=== PATIENT | female | born 1980 | race African-American/Black ===

== ENCOUNTER → 2016-10-30 | Outpatient (CLI) | payer OTHER ==
[~2016-10-30] MED LIST: ASPI81TA82 PO; FURO20TA PO; GABA300C3 PO; GLIP5 PO; KEPP1000 PO; KEPP500T3 PO; LISI-360 PO; METF500 PO; NEBI20 PO; TOPI50TA4 PO; [UNRECOGNIZED DRUG - CODE] PO
--- NOTE | 2016-10-30 10:31 | MG ---
cc: JERAD HARMON M.D. Lab No: Date: 10/30/2016 Age: 35 Sex: F Race: REQUESTING PHYSICIAN Dr. Yousif. An EEG was obtained on this 35-year-old patient being evaluated for syncope. History of seizures. MEDICATIONS 1. Keppra. 2. Gabapentin. 3. Hydrocodone. 4. Metformin. 5. Topamax. 6. Lisinopril. 7. Lasix. The patient is described as awake and drowsy. The EEG shows mid amplitude 9-10 per second alpha rhythm centrally and posteriorly. There are low amplitude beta rhythms centrally and frontally. There is occasional sharp discharge, questionably left more than right but most importantly there are bursts of spike and some polyspike and slow wave activity maximum frontally, this is seen bilaterally without any distinct asymmetry. Hyperventilation disclosed some minimal generalized slowing. Photic stimulation was unremarkable. INTERPRETATION Abnormal EEG because of occasional to frequent spike and some polyspike and slow wave discharge maximum frontally and bilaterally. 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 No ictal pattern during the recording. Jerad Harmon MD OFC/TLL /9:32 AM /10:30 AM
== END ==
LOC: HEEG 07:00
PROVIDERS: ATTEND Psychiatry & Neurology Neurology
DX: R55 Syncope and collapse (principal)
CPT/HCPCS: 95819

== ENCOUNTER 2017-06-04 22:22 | Emergency (ER) | payer OTHER, MEDICAID ==
[~2017-06-04] VITALS: Ht 188 cm; Wt 150.0 kg
[2017-06-04 22:23] VITALS: BP 130/90; PULSE 93; RESP 16; TEMP 99; O2SAT 99
[2017-06-04 23:38] VITALS: BP_SYST 107; BP_SYST 111; BP_SYST 125; BP_DIAS 65; BP_DIAS 68; BP_DIAS 83
--- NOTE | 2017-06-05 00:24 | PD ---
HPI Chief Complaint: Syncope/Near-Syncope Time Seen by Provider: 00:19 Travel History International Travel<30 days: No Contact w/Intl Traveler<30days: No Traveled to known affect area: No History of Present Illness HPI 36-year-old female presents to the emergency department for several days of dizziness and feeling lightheaded and perhaps as if she might faint. Patient's had no fainting spell or syncopal episodes. Patient denies previous history of similar symptoms. Patient states that she is . Patient was seen by her [employer] ATTENDANT 05/25/17 and neck appointment is 06/11/17. Patient is taking vitamins. Patient has history of seizure and was previously on Keppra but has not been on Keppra since diagnosed with and last seizure was approximately a year ago patient also has history of asthma but has had no recent exacerbation patient is also diagnosed with diabetes since on metformin but this has been held with her recent patient has had previous [place] bypass and that was performed 03/22/2016. Patient's had no fever no chills no cough no congestion no sore throat no earache no chest pain no palpitations no sweats no nausea no vomiting no dysuria frequency urgency hematuria or flank pain also denies any vaginal discharge vaginal bleeding or fluid leak. Patient has had good appetite reportedly. Patient does report weight gain. Patient reports discomfort as mild to moderate. Patient does not know her blood type. Last menstrual period was 03/06/17; EDC: 12/11/17. Patient is AB 0. PFSH Past Medical History Narrative Medical Asthma seizure diabetes dyslipidemia gastric bypass tonsillectomy adenoidectomy : No tobacco use; nursing notes reviewed Asthma: Yes Blood Disorders: No Bipolar Disorder: Yes Cancer: No Cardiovascular Problems: Yes High Cholesterol: Yes Diabetes: Yes Patient Takes Glucophage: Yes Diminished Hearing: No Endocrine: No Genitourinary: No Hepatitis: No Hiatal Hernia: No Hypertension: Yes Immune Disorder: No Implanted Vascular Access Dvce: No Musculoskeletal: Yes (HX OF BACK PROBLEMS) Neurologic: Yes (SEIZURES) Psychiatric: Yes (BIPOLAR, ADHD) Reproductive: No Respiratory: Yes (ASTHMA) Immunizations Current: No Seizures: Yes Thyroid Disease: No Influenza Vaccination: No ?: LMP: 03/06/17 Menopausal: No : 0 Past Surgical History Abdominal Surgery: Yes (gastric bypass 04/2016) AICD: No Joint Replacement: No Pacemaker: No Tonsillectomy: Yes Other Surgery: No Social History Alcohol Use: Yes (RARELY) Tobacco Use: No Substance Use: No Allergies-Medications (Allergen,Severity, Reaction): Coded Allergies: penicillin G (Unverified Allergy, Severe, 06/04/17) phenytoin (Unverified Allergy, Intermediate, hives, 06/04/17) diphenhydramine (Unverified Allergy, Mild, 06/04/17) Reported Meds & Prescriptions Reported Meds & Active Scripts Active Macrobid (Nitrofurantoin Monoh/Nitrofur Macro) 100 Mg Cap 100 Mg PO BID 3 Days Reported Gabapentin 300 Mg Cap 300 Mg PO ONCE Aspir-81 (Aspirin) 81 Mg Tab 81 Mg PO DAILY Keppra (Levetiracetam) 1,000 Mg Tab 1,000 Mg PO TID Glucophage 500 mg (Metformin HCl) 500 Mg Tab 500 Mg PO DAILY Keppra (Levetiracetam) 500 Mg Tab 500 Mg PO TID Glipizide 5 Mg Tab 5 Mg PO DAILY Bystolic 20 Mg Tab (Nebivolol) 20 Mg Tab 20 Mg PO DAILY Lisinopril 10 mg (Lisinopril) 10 Mg Tab 1 Tab PO DAILY Lortab 10 mg/300mg/15ml (Hydrocodone/Acetaminophen 10 mg/300 mg/15 ml) 10 mg/ 300 mg/15 ML Elix 15 Ml PO Q4 PRN Furosemide 20 Mg Tab 10 Mg PO DAILY Topamax (Topiramate) 50 Mg Tab 100 Mg PO BID PRN Narrative Medication vitamins Review of Systems Except as stated in HPI: all other systems reviewed are Neg Physical Exam Narrative GENERAL: Well-developed well-nourished female in no acute distress no respiratory distress SKIN: Warm and dry. HEAD: Normocephalic. EYES: No scleral icterus. No injection or drainage. NECK: Supple, trachea midline. No JVD or lymphadenopathy. CARDIOVASCULAR: Regular rate and rhythm without murmurs, gallops, or rubs. RESPIRATORY: Breath sounds equal bilaterally. No accessory muscle use. GASTROINTESTINAL: Abdomen soft, non-tender, nondistended. MUSCULOSKELETAL: No cyanosis, or edema. BACK: Nontender without obvious deformity. No CVA tenderness. Data Data Last Documented VS Vital Signs Date Time Temp Pulse Resp B/P (MAP) Pulse Ox O2 Delivery O2 Flow Rate FiO2 06/04/17 23:38 89 107/65 (79) 111 111/68 (82) 83 125/83 (97) 06/04/17 22:23 99.0 16 99 Room Air Orders Orders Beta Hcg (Quant/Titer) (06/05/17 00:19) Complete Blood Count With Diff (06/05/17 00:19) Comprehensive Metabolic Panel (06/05/17 00:19) Complete Rh (06/05/17 00:19) Urinalysis - C+S If Indicated (06/05/17 00:19) Iv Access Insert/Monitor (06/05/17 00:19) Ed Urine Pregnancytest Poc (06/05/17 00:19) Orthostatic Vital Signs (06/05/17 00:19) Electrocardiogram (06/05/17 ) Sodium Chlor 0.9% 1000 Ml Inj (Ns 1000 M (06/05/17 00:30) Labs Laboratory Tests Test 06/04/17 23:45 06/05/17 00:35 White Blood Count 8.6 TH/MM3 Red Blood Count 4.22 MIL/MM3 Hemoglobin 12.5 GM/DL Hematocrit 37.5 % Mean Corpuscular Volume 88.9 FL Mean Corpuscular Hemoglobin 29.7 PG Mean Corpuscular Hemoglobin Concent 33.4 % Red Cell Distribution Width 13.5 % Platelet Count 313 TH/MM3 Mean Platelet Volume 7.9 FL Neutrophils (%) (Auto) 52.6 % Lymphocytes (%) (Auto) 33.9 % Monocytes (%) (Auto) 8.8 % Eosinophils (%) (Auto) 3.9 % Basophils (%) (Auto) 0.8 % Neutrophils # (Auto) 4.5 TH/MM3 Lymphocytes # (Auto) 2.9 TH/MM3 Monocytes # (Auto) 0.8 TH/MM3 Eosinophils # (Auto) 0.3 TH/MM3 Basophils # (Auto) 0.1 TH/MM3 CBC Comment DIFF FINAL Differential Comment Blood Urea Nitrogen 8 MG/DL Creatinine 0.73 MG/DL Random Glucose 69 MG/DL Total Protein 7.2 GM/DL Albumin 2.9 GM/DL Calcium Level 8.3 MG/DL Alkaline Phosphatase 71 U/L Aspartate Amino Transf (AST/SGOT) 9 U/L Alanine Aminotransferase (ALT/SGPT) 11 U/L Total Bilirubin 0.3 MG/DL Sodium Level 138 MEQ/L Potassium Level 3.7 MEQ/L Chloride Level 105 MEQ/L Carbon Dioxide Level 22.5 MEQ/L Anion Gap 11 MEQ/L Estimat Glomerular Filtration Rate 110 ML/MIN Human Chorionic Gonadotropin, Quant 11054 MIU/ML Urine Color YELLOW Urine Turbidity HAZY Urine pH 5.5 Urine Specific [place] 1.019 Urine Protein TRACE mg/dL Urine Glucose (UA) NEG mg/dL Urine Ketones NEG mg/dL Urine Occult Blood NEG Urine Nitrite NEG Urine Bilirubin NEG Urine Urobilinogen 2.0 MG/DL Urine Leukocyte Esterase LARGE Urine RBC 3 /hpf Urine WBC 7 /hpf Urine Squamous Epithelial Cells 4 /hpf Urine Bacteria RARE /hpf Urine Mucus FEW /lpf Microscopic Urinalysis Comment CULT NOT INDICATED MDM Medical Decision Making Medical Screen Exam Complete: Yes Emergency Medical Condition: Yes Medical Record Reviewed: Yes Interpretation(s) poc hcg: positive quant hcg: CBC & BMP Diagram 06/04/17 23:45 Total Protein 7.2, Albumin 2.9 L, Calcium Level 8.3 L, Alkaline Phosphatase 71, Aspartate Amino Transf (AST/SGOT) 9 L, Alanine Aminotransferase (ALT/SGPT) 11, Total Bilirubin 0.3 Vital Signs Date Time Temp Pulse Resp B/P (MAP) Pulse Ox O2 Delivery O2 Flow Rate FiO2 06/04/17 23:38 89 107/65 (79) 111 111/68 (82) 83 125/83 (97) 06/04/17 22:23 99.0 93 16 130/90 (103) 99 Room Air Differential Diagnosis Near syncope syncope arrhythmia likely disturbance anemia dehydration UTI Narrative Course Patient placed on cardiac care nurse; IV access obtained; orthostatic measurements obtained; Patient given fluid bolus 1 L After informed verbal consent patient placed supine using curvilinear probe and sagittal and transverse views intrauterine identified with heart beat of 136 Patient informed of lab values given fluid hydration and oral intake Patient stable for outpatient management and follow-up with her field sales associate Diagnosis Primary Impression: Hypoglycemia Additional Impressions: Qualified Codes: Z3A.13 - 13 weeks gestation of Cystitis Referrals: [facility] [employer] Rep[employer]r 1 day Patient Instructions: General Instructions Additional Instructions: Increase fluid hydration Follow-up with your primary care provider/field sales associate Return to the emergency department for any concerns or change in condition Increase fluid hydration and dietary intake Complete course of antibiotic as prescribed Return to the emergency for free concerns or change condition Take acetaminophen/Tylenol as needed for minor pain or for fever 100.4 days Fahrenheit or greater Med/Other Pt SpecificInfo: Prescription(s) given Scripts Nitrofurantoin Monohydrate Macrocrystals (Macrobid) 100 Mg Cap 100 MG PO BID for Infection for 3 Days, #6 CAP 0 Refills Prov: Anabela Hays MD 06/05/17 Disposition: 01 DISCHARGE HOME Condition: Stable Anabela Hays MD Jun 05, 2017 00:24
[2017-06-05] MEDS ORDERED: SODIUM CHLOR 0.9% 1000 ML INJ 1,000 ML IV ONE (00:30)
[2017-06-05 00:55] LABS: AUTOMATED NEUTROPHIL # 4.5 TH/MM3 (1.8-7.7); BASOPHIL # 0.1 TH/MM3 (0-0.2); BASOPHIL % 0.8 % (0.0-2.0); EOSINOPHIL # 0.3 TH/MM3 (0-0.4); EOSINOPHIL % 3.9 % (0.0-4.0); HEMATOCRIT 37.5 % (35.0-46.0); HEMOGLOBIN 12.5 GM/DL (11.6-15.3); LYMPH % 33.9 % (9.0-44.0); LYMPHOCYTE # 2.9 TH/MM3 (1.0-4.8); MEAN CELL VOLUME 88.9 FL (80.0-100.0); MEAN CORPUSCULAR HEMOGLOBIN 29.7 PG (27.0-34.0); MEAN CORPUSCULAR HGB CONC 33.4 % (32.0-36.0); MEAN PLATELET VOLUME 7.9 FL (7.0-11.0); MONO % 8.8 % (0.0-8.0); MONOCYTE # 0.8 TH/MM3 (0-0.9); NEUT % 52.6 % (16.0-70.0); PLATELET COUNT 313 TH/MM3 (150-450); RED BLOOD COUNT 4.22 MIL/MM3 (4.00-5.30); RED CELL DISTRIBUTION WIDTH 13.5 % (11.6-17.2); WHITE BLOOD COUNT 8.6 TH/MM3 (4.0-11.0)
[2017-06-05 01:00] LABS: BACTERIA, URINE RARE /hpf; BILIRUBIN, URINE NEG (NEG); BLOOD, URINE NEG (NEG); GLUCOSE,URINE NEG (NEG); KETONE, URINE NEG (NEG); MUCUS URINE FEW /lpf (OCC); NITRITE,URINE NEG (NEG); PH, URINE 5.5 (5.0-8.5); SQUAMOUS EPITHELIAL CELL URINE 4 /hpf (0-5); URINE COLOR YELLOW (YELLW/STRAW); URINE LEUKOCYTE ESTERASE LARGE (NEG)
[2017-06-05 02:15] LABS: ALBUMIN 2.9 GM/DL (3.4-5.0); ALT (GPT) 11 U/L (10-53); AST (GOT) 9 U/L (15-37); BICARBONATE 22.5 MEQ/L (21.0-32.0); BLOOD UREA NITROGEN 8 MG/DL (7-18); CALCIUM 8.3 MG/DL (8.5-10.1); CHLORIDE 105 MEQ/L (98-107); CREATININE 0.73 MG/DL (0.50-1.00); GLOMERULAR FILTRATION RATE 110 ML/MIN (>89); GLUCOSE,RANDOM 69 MG/DL (74-106); SODIUM (NA) 138 MEQ/L (136-145)
[2017-06-05 02:33] LABS: ALKALINE PHOSPHATASE 71 U/L (45-117); TOTAL BILIRUBIN ADULT 0.3 MG/DL (0.2-1.0); TOTAL PROTEIN 7.2 GM/DL (6.4-8.2)
[2017-06-05] MEDS ORDERED: MACR100C2 PO (03:08)
== END 2017-06-05 03:50 | disposition home or self-care (01) ==
LOC: NEPC 22:22
DX: O24.111 Pre-existing type 2 diabetes mellitus, in pregnancy, first trimester (principal); E11.649 Type 2 diabetes mellitus with hypoglycemia without coma; O23.11 Infections of bladder in pregnancy, first trimester; O99.341 Other mental disorders complicating pregnancy, first trimester; O16.1 Unspecified maternal hypertension, first trimester; O99.511 Diseases of the respiratory system complicating pregnancy, first trimester; O99.841 Bariatric surgery status complicating pregnancy, first trimester; R56.9 Unspecified convulsions; Z3A.13 13 weeks gestation of pregnancy
CPT/HCPCS: 80053; 81001; 84702; 84703; 85025; 86901; 99284; J7030

== ENCOUNTER 2017-07-06 12:35 | Emergency (ER) | payer MEDICAID, OTHER ==
[~2017-07-06 12:35] MED LIST changes: +MACR100C2 PO
[2017-07-06] MEDS ORDERED: MEPERIDINE HCL 50 MG/ML VIAL IM ONE (14:30)
[2017-07-06] MEDS ORDERED: PROMETHAZINE INJ 25 MG/ML VIAL IM ONE (14:30)
--- NOTE | 2017-07-06 15:14 | PD ---
HPI Chief Complaint Headache for 6 day has not taken anything for Date Seen: Jul 06, 2017 Time Seen: 14:30 Travel History International Travel<30 Days: No Contact w/Intl Traveler<30Days: No Known Affected Area: No History of Present Illness HPI 36-year-old black female at 17-18 weeks who is unregistered to our system she sees a doctor in [place] she presents complaining of frontal headache for 6 days, she has had one episode of vomiting this morning. She has not taken anything for the headache so far but states that she has has a history of chronic headaches and was on Topamax for headaches but obviously is not taking that in she is having no obstetric problem no pelvic pain discharge bleeding or leakage of fluid. Weeks Gestation: 17 Para: 0 : 1 History Past Medical History Narrative Medical History of chronic headaches but did not take anything in , seizure disorder takes Keppra last seizure was last year some time, she has asthma and she takes medication for this as well, patient is obese and very tall 6 foot 2 and 325 pounds Obstetric History Obstetric History sees a doctor in [place] Past Surgical History Narrative Surgical Had a gastric bypass surgery in about a year and 3 months ago and she states prior to that she was heavier and had high blood pressure and was medicated for that once she had her surgery and lost weight she was no longer hypertensive Social History Alcohol Use: No Tobacco Use: No Substance Abuse: No Allergies-Medications (Allergen,Severity, Reaction): Coded Allergies: penicillin G (Unverified Allergy, Severe, 06/04/17) phenytoin (Unverified Allergy, Intermediate, hives, 06/04/17) diphenhydramine (Unverified Allergy, Mild, 06/04/17) Home Meds Active Scripts Nitrofurantoin Monohydrate Macrocrystals (Macrobid) 100 Mg Cap, 100 MG PO BID for Infection for 3 Days, #6 CAP 0 Refills Prov:Anabela Hays MD 06/05/17 Reported Medications Gabapentin (Gabapentin) 300 Mg Cap, 300 MG PO ONCE, CAP 01/12/16 Aspirin (Aspir-81) 81 Mg Tab, 81 MG PO DAILY, TAB 01/12/16 Levetiracetam (Keppra) 1,000 Mg Tab, 1000 MG PO TID, TAB 01/12/16 Metformin 500 mg (Glucophage 500 mg) 500 Mg Tab, 500 MG PO DAILY, TAB 01/12/16 Levetiracetam (Keppra) 500 Mg Tab, 500 MG PO TID, TAB 11/14/15 Glipizide (Glipizide) 5 Mg Tab, 5 MG PO DAILY, TAB 11/14/15 Nebivolol (Bystolic 20 Mg Tab) 20 Mg Tab, 20 MG PO DAILY, TAB 11/14/15 Lisinopril 10 mg (Lisinopril 10 mg) 10 Mg Tab, 1 TAB PO DAILY, TAB 11/14/15 Hydrocodone/Acetaminophen 10 mg/300 mg/15 ml (Lortab 10 mg/300mg/15ml) 10 mg/ 300 mg/15 ML Elix, 15 ML PO Q4 Y for PAIN SCALE 1 TO 6, ML 02/18/14 Furosemide (Furosemide) 20 Mg Tab, 10 MG PO DAILY, TAB 02/16/14 Topiramate (Topamax) 50 Mg Tab, 100 MG PO BID Y for HEADACHE, TAB 11/19/13 Review of Systems General / Constitutional: No: Fever, Weight Gain, Chills, Other Eyes: No: Diploplia, Blurred Vision, Visual changes, Pain, Photophobia HENT: Headaches, No: Vertigo, Lightheadedness Cardiovascular: No: Irregular Rhythm, Chest Pain or Discomfort, Palpitations, Tachycardia, Syncope, Varicosities, Edema, Cyanosis Respiratory: No: Cough, Short of Breath, Other Gastrointestinal: No: Nausea, Vomiting, Diarrhea Genitourinary: No: Decreased Urinary Output, Oliguria Musculoskeletal: No: Limited ROM, Weakness, Cramping, Edema, Pain Skin: No Rash, No Itching, No Dryness, No Lumps, No Change in Pigmentation, No Change in Nails, No Alopecia, No Lesions Neurologic: No: Weakness, Dizziness, Syncope, Focal Abnormalities, Coordination Problem, Headache, Slurred Speech, Seizures Psychiatric: No: Depression, Suicidal Ideations, Homicidal Ideation Endocrine: No: Heat Intolerance, Cold Intolerance, Polydipsia, Polyuria, Other Physical Exam Narrative GENERAL: Well-nourished, obese patient. SKIN: Warm and dry. HEAD: Normocephalic and atraumatic. EYES: No scleral icterus. No injection or drainage. ENT: No nasal drainage noted. Mucous membranes pink. Airway patent. NECK: Supple, trachea midline. No JVD. CARDIOVASCULAR: Regular rate and rhythm without murmurs, gallops, or rubs. RESPIRATORY: Breath sounds equal bilaterally. No accessory muscle use. BREASTS: Bilateral exam showed no masses , no retractions, no nipple discharge. ABDOMEN/GI: Abdomen soft, non-tender, bowel sounds present, no rebound, no guarding Gravid to [-17] weeks size Fundal Height: [17-] below umbilicus GENITOURINARY: External Genitalia: intact and normal in appearance FHT's: 144 EXTREMITIES: No cyanosis or edema. BACK: Nontender without obvious deformity. No CVA tenderness. NEUROLOGICAL: Awake and alert. Motor and sensory grossly within normal limits. Five out of 5 muscle strength in all muscle groups. Normal speech. Data Data Orders Orders Meperidine Inj (Demerol Inj) (07/06/17 14:30) Promethazine Inj (Phenergan Inj) (07/06/17 14:30) MDM Interpretation(s) Patient is a 36-year-old black female at 17-18 weeks presents with headache. She was initially seen down in the emergency room and I center up. OB ED. She has had a bad headache for 6 days is taken nothing for it, her blood pressure is normal here. She has a history of chronic headaches in the past was treated with Topamax prior to . Plan Plan to the patient I am shot of Demerol and Phenergan for her headache pain and will leave with a prescription for Fioricet for headaches she knows to take this early on as the headache begins not to wait and let it get bad Diagnosis Diagnosis: Primary Impression: Headache above the eye region Additional Impression: 17 weeks gestation of Disposition: DISCHARGE HOME Condition: Stable Scripts Xpghgycofq-Ufzewdwhcwoxa-Mkqfdjcs (Fioricet) 50-300-40 Mg Cap 1-2 CAP PO Q6H Y for HEADACHE, #20 CAP 1 Refill Prov: Baldev Rodriguez II, MD 07/06/17 Baldev Rodriguez II, MD Jul 06, 2017 15:14
[2017-07-06] MEDS ORDERED: BUTA1CAP PO (15:41)
== END 2017-07-06 15:51 | disposition home or self-care (01) ==
LOC: HOBED 12:35
DX: O26.92 Pregnancy related conditions, unspecified, second trimester (principal); R51 Headache; Z3A.17 17 weeks gestation of pregnancy; G89.29 Other chronic pain; J45.909 Unspecified asthma, uncomplicated; O99.842 Bariatric surgery status complicating pregnancy, second trimester; Z88.0 Allergy status to penicillin; Z88.8 Allergy status to other drugs, medicaments and biological substances
CPT/HCPCS: 96372; 99283; J2550

== ENCOUNTER 2017-10-26 15:48 | Observation (INO) | payer OTHER ==
[2017-10-26] VITALS (10 sets, daily range): BP systolic 106–132; BP diastolic 60–85; PULSE 83–97; RESP 16–20; TEMP 97.8–98.3; O2SAT 99–100
[~2017-10-26] VITALS: Ht 188 cm; Wt 148.0 kg
[~2017-10-26 15:48] MED LIST changes: +BUTA1CAP PO
[2017-10-26] MEDS ORDERED: LACTATED RINGER'S 1000 ML INJ 1,000 ML IV SCH (19:51)
--- NOTE | 2017-10-26 20:03 | PD ---
HPI Chief Complaint pt c/o feeling dizzy since sunday. Date Seen: Oct 26, 2017 Time Seen: 20:00 Travel History International Travel<30 Days: No Contact w/Intl Traveler<30Days: No Known Affected Area: No History of Present Illness HPI pt is a 36 yo who presents c/o feeling dizzy all day. pt hasn't eaten since 12 pm. symptoms are worse with standing, better intermittently with lying flat. c/o of pain in her head that comes and goes. pt also states there is numbness in her head denies photophobia or sensitivity to noise. admits to decreased po intake today. states care is with [facility] [place] secondary to hx of seizure d/o, gastric bypass and asthma. pt denies bowel or urinary symptoms. + FM, no LOF, VB or CTX. denies n/v. states she does not feel like this is an aura nor is it her chronic headaches for which she sees dr. carroll Weeks Gestation: 34 Para: 0 : 1 History Past Medical History Narrative Medical seizure d/o asthma diabetes chronic migraines ( took topamax before ) Obstetric History Obstetric History Past Surgical History Narrative Surgical gastric bypass Family History Family History: Negative Social History Alcohol Use: No Tobacco Use: No Substance Abuse: No Allergies-Medications (Allergen,Severity, Reaction): Coded Allergies: penicillin G (Unverified Allergy, Severe, 06/04/17) phenytoin (Unverified Allergy, Intermediate, hives, 06/04/17) diphenhydramine (Unverified Allergy, Mild, 06/04/17) Home Meds Active Scripts Hlkflkejvg-Qmeomomayddtw-Blhuuath (Fioricet) 50-300-40 Mg Cap, 1-2 CAP PO Q6H Y for HEADACHE, #20 CAP 1 Refill Prov:Baldev Rodriguez II, MD 07/06/17 Nitrofurantoin Monohydrate Macrocrystals (Macrobid) 100 Mg Cap, 100 MG PO BID for Infection for 3 Days, #6 CAP 0 Refills Prov:Anabela Hays MD 06/05/17 Reported Medications Gabapentin (Gabapentin) 300 Mg Cap, 300 MG PO ONCE, CAP 01/12/16 Aspirin (Aspir-81) 81 Mg Tab, 81 MG PO DAILY, TAB 01/12/16 Levetiracetam (Keppra) 1,000 Mg Tab, 1000 MG PO TID, TAB 01/12/16 Metformin 500 mg (Glucophage 500 mg) 500 Mg Tab, 500 MG PO DAILY, TAB 01/12/16 Levetiracetam (Keppra) 500 Mg Tab, 500 MG PO TID, TAB 11/14/15 Glipizide (Glipizide) 5 Mg Tab, 5 MG PO DAILY, TAB 11/14/15 Nebivolol (Bystolic 20 Mg Tab) 20 Mg Tab, 20 MG PO DAILY, TAB 11/14/15 Lisinopril 10 mg (Lisinopril 10 mg) 10 Mg Tab, 1 TAB PO DAILY, TAB 11/14/15 Hydrocodone/Acetaminophen 10 mg/300 mg/15 ml (Lortab 10 mg/300mg/15ml) 10 mg/ 300 mg/15 ML Elix, 15 ML PO Q4 Y for PAIN SCALE 1 TO 6, ML 02/18/14 Furosemide (Furosemide) 20 Mg Tab, 10 MG PO DAILY, TAB 02/16/14 Topiramate (Topamax) 50 Mg Tab, 100 MG PO BID Y for HEADACHE, TAB 11/19/13 Review of Systems Except as stated in HPI: all other systems reviewed are Neg Physical Exam Vital Signs Date Time Temp Pulse Resp B/P (MAP) Pulse Ox O2 Delivery O2 Flow Rate FiO2 10/26/17 16:13 98.3 97 16 128/79 (95) 99 Narrative GENERAL: Well-nourished, well-developed patient. SKIN: Warm and dry. HEAD: Normocephalic and atraumatic. EYES: No scleral icterus. No injection or drainage. ENT: No nasal drainage noted. Mucous membranes pink. Airway patent. NECK: Supple, trachea midline. No JVD. CARDIOVASCULAR: Regular rate and rhythm without murmurs, gallops, or rubs. RESPIRATORY: Breath sounds equal bilaterally. No accessory muscle use. BREASTS: Bilateral exam showed no masses , no retractions, no nipple discharge. ABDOMEN/GI: Abdomen soft, non-tender, bowel sounds present, no rebound, no guarding Gravid Fundal Height: [-] GENITOURINARY: Membranes: [intact] Uterine Contractions: [quiet] FHT's: Category: [-] 1 Baseline: [-] Reactive: [-] Variability: [-] Decels: [-] EXTREMITIES: No cyanosis or edema. BACK: Nontender without obvious deformity. No CVA tenderness. NEUROLOGICAL: Awake and alert. Motor and sensory grossly within normal limits. Five out of 5 muscle strength in all muscle groups. Normal speech. Data Data Vital Signs Reviewed: Yes Orders Orders Vital Signs (Adult) .ON ADMISSION (10/26/17 19:51) ^ Labor Status (10/26/17 19:51) Heart (10/26/17:51) Urinalysis - C+S If Indicated (10/26/17:51) Bedside Glucose LANDY.CSUGAR (10/26/17:51) ^ Non Stress Test (10/26/1751) ^ Hydration (10/26/17:51) Diet Regular Basic (10/27/17 Breakfast) Cbc No Diff, Includes Plts (10/26/17:51) Comprehensive Metabolic Panel (10/26/17:) Uric Acid (10/26/17:51) Type And Screen (10/26/17:51) Lactated Ringer's 1000 Ml Inj (Lr 1000 M (10/26/17 19:51) Labs Vital Signs, 24 Hour Date Time Temp Pulse Resp B/P (MAP) Pulse Ox O2 Delivery O2 Flow Rate FiO2 10/26/17 21:40 94 10/26/17 21:38 92 106/61 (76) 10/26/17 20:31 86 108/65 (79) 10/26/17 20:20 83 110/73 (85) 10/26/17 20:03 85 132/85 (101) 10/26/17 16:13 98.3 97 16 128/79 (95) 99 Allergies Coded Allergies penicillin G (Unverified Allergy, Severe, 06/04/17) phenytoin (Unverified Allergy, Intermediate, hives, 06/04/17) diphenhydramine (Unverified Allergy, Mild, 06/04/17) Orders - Mariam Streeter MD Procedure Category Date Status Time Vital Signs (Adult) LANDY 10/26/17 In Process 19:51 ^ Labor Status LANDY 10/26/17 In Process 19:51 Heart LANDY 6/22/18 In Process 19:51 Bedside Glucose LANDY 10/26/17 In Process 19:51 ^ Non Stress Test LANDY 10/26/17 In Process 19:51 ^ Hydration LANDY 10/26/17 In Process 19:51 Lactated Ringer's MED 10/26/17 In Process 1000 Ml Inj (Lr 1000 M 19:51 Urine Culture YASMIN 10/26/17 In Process 19:53 Hiuw-Ptjss-Qrxf MED 10/27/17 In Process 325-50-40 Mg 02:45 Place In Observation ADMITTING 10/26/17 Transmitted Diet Ob Consistent DIET 10/27/17 Transmitted Carb Breakfast Vital Signs (Adult) LANDY 10/26/17 In Process 21:49 Heart LANDY 10/26/17 In Process 21:49 Activity Bed Rest LANDY 10/26/17 In Process With Brp 21:49 Basic Metabolic Panel LAB 10/26/17 Logged (Bmp) 21:49 Bedside Glucose LANDY 10/26/17 In Process 21:49 Lactated Ringer's MED 10/26/17 Logged 1000 Ml Inj (Lr 1000 M 21:49 Sodium Chloride 0.9% MED 10/27/17 Logged Flush (Ns Flush) 09:00 Sodium Chloride 0.9% MED 10/26/17 Logged Flush (Ns Flush) 22:00 Zolpidem (Ambien) MED 10/26/17 Logged 22:00 Promethazine Inj MED 10/26/17 Logged (Phenergan Inj) 22:00 Laboratory Tests per [place] Test 10/26/17 19:53 Blood Urea Nitrogen 6 MG/DL Creatinine 1.02 MG/DL Random Glucose 100 MG/DL Total Protein 7.3 GM/DL Albumin 2.6 GM/DL Calcium Level 8.5 MG/DL Uric Acid 3.5 MG/DL Alkaline Phosphatase 139 U/L Aspartate Amino Transf (AST/SGOT) 14 U/L Alanine Aminotransferase (ALT/SGPT) 15 U/L Total Bilirubin 0.3 MG/DL Sodium Level 138 MEQ/L Potassium Level 3.6 MEQ/L Chloride Level 105 MEQ/L Carbon Dioxide Level 20.7 MEQ/L Red Blood Count 4.11 MIL/MM3 White Blood Count 8.7 TH/MM3 Active Scripts Active Fioricet (Ovxcodcgkc-Aroifbvkjnyfd-Qupdfcuw) 50-300-40 Mg Cap 1-2 Cap PO Q6H PRN Macrobid (Nitrofurantoin Monoh/Nitrofur Macro) 100 Mg Cap 100 Mg PO BID 3 Days Reported Gabapentin 300 Mg Cap 300 Mg PO ONCE Aspir-81 (Aspirin) 81 Mg Tab 81 Mg PO DAILY Keppra (Levetiracetam) 1,000 Mg Tab 1,000 Mg PO TID Glucophage 500 mg (Metformin HCl) 500 Mg Tab 500 Mg PO DAILY Keppra (Levetiracetam) 500 Mg Tab 500 Mg PO TID Glipizide 5 Mg Tab 5 Mg PO DAILY Bystolic 20 Mg Tab (Nebivolol) 20 Mg Tab 20 Mg PO DAILY Lisinopril 10 mg (Lisinopril) 10 Mg Tab 1 Tab PO DAILY Lortab 10 mg/300mg/15ml (Hydrocodone/Acetaminophen 10 mg/300 mg/15 ml) 10 mg/ 300 mg/15 ML Elix 15 Ml PO Q4 PRN Furosemide 20 Mg Tab 10 Mg PO DAILY Topamax (Topiramate) 50 Mg Tab 100 Mg PO BID PRN Microbiology 10/26/17 Urine Culture, Received Pending MDM Medical Record Reviewed: Yes Plan check cbc, cmp iv hydrate Critical Care Narrative pt was observed in [facility], given IVF, labs were WNL. symptoms persisted will observe overnight. trial phenergan and continued IV hydration to see if sx improve. Diagnosis Diagnosis: Primary Impression: Dizziness Additional Impressions: Seizure disorder during in third trimester Diabetes in undelivered Mariam Streeter MD Oct 26, 2017 20:03
[2017-10-26 20:44] LABS: HEMATOCRIT 34.7 % (35.0-46.0); HEMOGLOBIN 11.3 GM/DL (11.6-15.3); MEAN CELL VOLUME 84.5 FL (80.0-100.0); MEAN CORPUSCULAR HEMOGLOBIN 27.5 PG (27.0-34.0); MEAN CORPUSCULAR HGB CONC 32.5 % (32.0-36.0); MEAN PLATELET VOLUME 7.9 FL (7.0-11.0); PLATELET COUNT 312 TH/MM3 (150-450); RED BLOOD COUNT 4.11 MIL/MM3 (4.00-5.30); RED CELL DISTRIBUTION WIDTH 15.5 % (11.6-17.2); WHITE BLOOD COUNT 8.7 TH/MM3 (4.0-11.0)
[2017-10-26] MEDS ORDERED: ACETAMIN 325 MG/BUTALBITAL 50 MG/CAFFEINE 40 MG TAB PO PRN (20:45)
[2017-10-26 20:54] LABS: BACTERIA, URINE FEW /hpf; BILIRUBIN, URINE NEG (NEG); BLOOD, URINE SMALL (NEG); GLUCOSE,URINE 50 mg/dL (NEG); KETONE, URINE NEG (NEG); MUCUS URINE MANY /lpf (OCC); NITRITE,URINE NEG (NEG); SQUAMOUS EPITHELIAL CELL URINE 3 /hpf (0-5); URINE COLOR YELLOW (YELLW/STRAW); URINE LEUKOCYTE ESTERASE LARGE (NEG)
[2017-10-26 21:01] LABS: ALBUMIN 2.6 GM/DL (3.4-5.0); AST (GOT) 14 U/L (15-37); BICARBONATE 20.7 MEQ/L (21.0-32.0); BLOOD UREA NITROGEN 6 MG/DL (7-18); CALCIUM 8.5 MG/DL (8.5-10.1); CHLORIDE 105 MEQ/L (98-107); CREATININE 1.02 MG/DL (0.50-1.00); GLOMERULAR FILTRATION RATE 75 ML/MIN (>89); GLUCOSE,RANDOM 100 MG/DL (74-106); SODIUM (NA) 138 MEQ/L (136-145)
[2017-10-26 21:02] LABS: ALT (GPT) 15 U/L (10-53)
[2017-10-26 21:07] LABS: ALKALINE PHOSPHATASE 139 U/L (45-117); TOTAL BILIRUBIN ADULT 0.3 MG/DL (0.2-1.0); TOTAL PROTEIN 7.3 GM/DL (6.4-8.2)
[2017-10-26] MEDS: LACTATED RINGER'S 1000 ML INJ 1,000 ML IV SCH (21:49)
[2017-10-26] MEDS ORDERED: ZOLPIDEM TARTRATE 10 MG TAB PO PRN (22:00)
[2017-10-26] MEDS ORDERED: PROMETHAZINE INJ 25 MG/ML VIAL IM ONE (22:00)
[2017-10-26] MEDS ORDERED: SODIUM CHLORIDE 0.9% FLUSH 10 ML FLUSH IV FLUSH PRN (22:00)
--- NOTE | 2017-10-26 22:01 | HHI.HP ---
History & Physical H&P HPI Chief Complaint pt c/o feeling dizzy since sunday. Date Seen: Oct 26, 2017 Time Seen: 20:00 Travel History International Travel<30 Days: No Contact w/Intl Traveler<30Days: No Known Affected Area: No History of Present Illness HPI pt is a 36 yo who presents c/o feeling dizzy all day. pt hasn't eaten since 12 pm. symptoms are worse with standing, better intermittently with lying flat. c/o of pain in her head that comes and goes. pt also states there is numbness in her head denies photophobia or sensitivity to noise. admits to decreased po intake today. states care is with [facility] [place] secondary to hx of seizure d/o, gastric bypass and asthma. pt denies bowel or urinary symptoms. + FM, no LOF, VB or CTX. denies n/v. states she does not feel like this is an aura nor is it her chronic headaches for which she sees dr. carroll Weeks Gestation: 34 Para: 0 : 1 History (Limited) History Past Medical History Narrative Medical seizure d/o asthma diabetes chronic migraines ( took topamax before ) Obstetric History Obstetric History Past Surgical History Narrative Surgical gastric bypass Family History Family History: Negative Social History Alcohol Use: No Tobacco Use: No Substance Abuse: No Allergies-Medications Allergies-Medications (Allergen,Severity, Reaction): Coded Allergies: penicillin G (Unverified Allergy, Severe, 06/04/17) phenytoin (Unverified Allergy, Intermediate, hives, 06/04/17) diphenhydramine (Unverified Allergy, Mild, 06/04/17) Home Meds Active Scripts Fpkdzcadnm-Osbmegzdphvvn-Mesgtdfs (Fioricet) 50-300-40 Mg Cap, 1-2 CAP PO Q6H Y for HEADACHE, #20 CAP 1 Refill Prov:Baldev Rodriguez II, MD 07/06/17 Nitrofurantoin Monohydrate Macrocrystals (Macrobid) 100 Mg Cap, 100 MG PO BID for Infection for 3 Days, #6 CAP 0 Refills Prov:Anabela Hays MD 06/05/17 Reported Medications Gabapentin (Gabapentin) 300 Mg Cap, 300 MG PO ONCE, CAP 01/12/16 Aspirin (Aspir-81) 81 Mg Tab, 81 MG PO DAILY, TAB 01/12/16 Levetiracetam (Keppra) 1,000 Mg Tab, 1000 MG PO TID, TAB 01/12/16 Metformin 500 mg (Glucophage 500 mg) 500 Mg Tab, 500 MG PO DAILY, TAB 01/12/16 Levetiracetam (Keppra) 500 Mg Tab, 500 MG PO TID, TAB 11/14/15 Glipizide (Glipizide) 5 Mg Tab, 5 MG PO DAILY, TAB 11/14/15 Nebivolol (Bystolic 20 Mg Tab) 20 Mg Tab, 20 MG PO DAILY, TAB 11/14/15 Lisinopril 10 mg (Lisinopril 10 mg) 10 Mg Tab, 1 TAB PO DAILY, TAB 11/14/15 Hydrocodone/Acetaminophen 10 mg/300 mg/15 ml (Lortab 10 mg/300mg/15ml) 10 mg/ 300 mg/15 ML Elix, 15 ML PO Q4 Y for PAIN SCALE 1 TO 6, ML 02/18/14 Furosemide (Furosemide) 20 Mg Tab, 10 MG PO DAILY, TAB 02/16/14 Topiramate (Topamax) 50 Mg Tab, 100 MG PO BID Y for HEADACHE, TAB 11/19/13 ROS Review of Systems Except as stated in HPI: all other systems reviewed are Neg Physical Exam Physical Exam Vital Signs Date Time Temp Pulse Resp B/P (MAP) Pulse Ox O2 Delivery O2 Flow Rate FiO2 10/26/17 16:13 98.3 97 16 128/79 (95) 99 Narrative GENERAL: Well-nourished, well-developed patient. SKIN: Warm and dry. HEAD: Normocephalic and atraumatic. EYES: No scleral icterus. No injection or drainage. ENT: No nasal drainage noted. Mucous membranes pink. Airway patent. NECK: Supple, trachea midline. No JVD. CARDIOVASCULAR: Regular rate and rhythm without murmurs, gallops, or rubs. RESPIRATORY: Breath sounds equal bilaterally. No accessory muscle use. BREASTS: Bilateral exam showed no masses , no retractions, no nipple discharge. ABDOMEN/GI: Abdomen soft, non-tender, bowel sounds present, no rebound, no guarding Gravid Fundal Height: [-] GENITOURINARY: Membranes: [intact] Uterine Contractions: [quiet] FHT's: Category: [-] 1 Baseline: [-] Reactive: [-] Variability: [-] Decels: [-] EXTREMITIES: No cyanosis or edema. BACK: Nontender without obvious deformity. No CVA tenderness. NEUROLOGICAL: Awake and alert. Motor and sensory grossly within normal limits. Five out of 5 muscle strength in all muscle groups. Normal speech. Data Data Data Vital Signs Reviewed: Yes Orders Orders Vital Signs (Adult) .ON ADMISSION (10/26/17 19:51) ^ Labor Status (10/26/17:51) Heart (10/26/17:51) Urinalysis - C+S If Indicated (10/26/17:51) Bedside Glucose LANDY.CSUGAR (10/26/17:51) ^ Non Stress Test (10/26/17:51) ^ Hydration (10/26/17:51) Diet Regular Basic (10/27/17 Breakfast) Cbc No Diff, Includes Plts (10/26/17:51) Comprehensive Metabolic Panel (10/26/17:51) Uric Acid (10/26/17:51) Type And Screen (10/26/17:51) Lactated Ringer's 1000 Ml Inj (Lr 1000 M (10/26/17:51) Labs Vital Signs, 24 Hour Date Time Temp Pulse Resp B/P (MAP) Pulse Ox O2 Delivery O2 Flow Rate FiO2 10/26/17 21:40 94 10/26/17 21:38 92 106/61 (76) 10/26/17 20:31 86 108/65 (79) 10/26/17 20:20 83 110/73 (85) 10/26/17 20:03 85 132/85 (101) 10/26/17 16:13 98.3 97 16 128/79 (95) 99 Allergies Coded Allergies penicillin G (Unverified Allergy, Severe, 06/04/17) phenytoin (Unverified Allergy, Intermediate, hives, 06/04/17) diphenhydramine (Unverified Allergy, Mild, 06/04/17) Orders - Mariam Streeter MD Procedure Category Date Status Time Vital Signs (Adult) LANDY 10/26/17 In Process 19:51 ^ Labor Status LANDY 10/26/17 In Process 19:51 Heart LANDY 10/26/17 In Process 19:51 Bedside Glucose LANDY 10/26/17 In Process 19:51 ^ Non Stress Test LANDY 10/26/17 In Process 19:51 ^ Hydration LANDY 10/26/17 In Process 19:51 Lactated Ringer's MED 10/26/17 In Process 1000 Ml Inj (Lr 1000 M 19:51 Urine Culture YASMIN 10/26/17 In Process 19:53 Vjum-Joctl-Xgar MED 10/27/17 In Process 325-50-40 Mg 02:45 Place In Observation ADMITTING 10/26/17 Transmitted Diet Ob Consistent DIET 10/27/17 Transmitted Carb Breakfast Vital Signs (Adult) LANDY 10/26/17 In Process 21:49 Heart LANDY 10/26/17 In Process 21:49 Activity Bed Rest LANDY 10/26/17 In Process With Brp 21:49 Basic Metabolic Panel LAB 10/26/17 Logged (Bmp) 21:49 Bedside Glucose LANDY 10/26/17 In Process 21:49 Lactated Ringer's MED 10/26/17 Logged 1000 Ml Inj (Lr 1000 M 21:49 Sodium Chloride 0.9% MED 10/27/17 Logged Flush (Ns Flush) 09:00 Sodium Chloride 0.9% MED 10/26/17 Logged Flush (Ns Flush) 22:00 Zolpidem (Ambien) MED 10/26/17 Logged 22:00 Promethazine Inj MED 10/26/17 Logged (Phenergan Inj) 22:00 Laboratory Tests per [place] Test 10/26/17 19:53 Blood Urea Nitrogen 6 MG/DL Creatinine 1.02 MG/DL Random Glucose 100 MG/DL Total Protein 7.3 GM/DL Albumin 2.6 GM/DL Calcium Level 8.5 MG/DL Uric Acid 3.5 MG/DL Alkaline Phosphatase 139 U/L Aspartate Amino Transf (AST/SGOT) 14 U/L Alanine Aminotransferase (ALT/SGPT) 15 U/L Total Bilirubin 0.3 MG/DL Sodium Level 138 MEQ/L Potassium Level 3.6 MEQ/L Chloride Level 105 MEQ/L Carbon Dioxide Level 20.7 MEQ/L Red Blood Count 4.11 MIL/MM3 White Blood Count 8.7 TH/MM3 Active Scripts Active Fioricet (Cknuyzsbmn-Papooazaxhwgt-Hhixlonp) 50-300-40 Mg Cap 1-2 Cap PO Q6H PRN Macrobid (Nitrofurantoin Monoh/Nitrofur Macro) 100 Mg Cap 100 Mg PO BID 3 Days Reported Gabapentin 300 Mg Cap 300 Mg PO ONCE Aspir-81 (Aspirin) 81 Mg Tab 81 Mg PO DAILY Keppra (Levetiracetam) 1,000 Mg Tab 1,000 Mg PO TID Glucophage 500 mg (Metformin HCl) 500 Mg Tab 500 Mg PO DAILY Keppra (Levetiracetam) 500 Mg Tab 500 Mg PO TID Glipizide 5 Mg Tab 5 Mg PO DAILY Bystolic 20 Mg Tab (Nebivolol) 20 Mg Tab 20 Mg PO DAILY Lisinopril 10 mg (Lisinopril) 10 Mg Tab 1 Tab PO DAILY Lortab 10 mg/300mg/15ml (Hydrocodone/Acetaminophen 10 mg/300 mg/15 ml) 10 mg/ 300 mg/15 ML Elix 15 Ml PO Q4 PRN Furosemide 20 Mg Tab 10 Mg PO DAILY Topamax (Topiramate) 50 Mg Tab 100 Mg PO BID PRN Microbiology 10/26/17 Urine Culture, Received Pending [facility] MDM Medical Record Reviewed: Yes Plan check cbc, cmp iv hydrate Critical Care Narrative pt was observed in [facility], given IVF, labs were WNL. symptoms persisted will observe overnight. trial phenergan and continued IV hydration to see if sx improve. Diagnosis Diagnosis: Primary Impression: Dizziness Additional Impressions: Seizure disorder during in third trimester Diabetes in undelivered Mariam Streeter MD Oct 26, 2017 22:01
[2017-10-26] MEDS: levETIRAcetam 500 MG TAB PO SCH (22:54)
[2017-10-27] MEDS: ACETAMIN 325 MG/BUTALBITAL 50 MG/CAFFEINE 40 MG TAB PO PRN ×2 (04:17→12:55)
[2017-10-27] MEDS: LACTATED RINGER'S 1000 ML INJ 1,000 ML IV SCH (04:29)
[2017-10-27] MEDS ORDERED: ADVA250A INH (05:08)
[2017-10-27 05:59] LABS: BICARBONATE 21.2 MEQ/L (21.0-32.0); CREATININE 0.82 MG/DL (0.50-1.00)
[2017-10-27] MEDS: levETIRAcetam 500 MG TAB PO SCH (06:06)
[2017-10-27] MEDS ORDERED: BUTA1CAP PO (08:29)
--- NOTE | 2017-10-27 08:30 | HHI.DCPOC ---
Discharge Care Plan Diagnosis: (1) Dizziness Report Symptoms to Your Doctor -Temperature above 100.5 degrees -Redness, of incision or excessive or foul smelling drainage -Unusual pain or calf pain -Increased vaginal bleeding -Painful or difficulty urinating -Feelings of extreme sadness or anxiety after 2 weeks Goals to Promote Your Health * To prevent worsening of your condition and complications, please follow-up with your neurologist as soon as possible. * To maintain your health at the optimal level, please continue follow-up with your doctors. Directions to Meet Your Goals Take your medications as prescribed Follow your dietary instruction Follow activity as directed Ensure plenty of rest for recovery Drink fluids for hydration Keep your appointments as scheduled Take your immunizations and boosters as scheduled If your symptoms worsen call your PCP, if no PCP go to Urgent Care Center or Emergency Room Smoking is Dangerous to Your Health. Avoid second hand smoke Call the 24-hour crisis hotline for domestic abuse at Hany Day MD R2 Oct 27, 2017 08:30
--- NOTE | 2017-10-27 08:33 | PD.OB.ANTE ---
Subjective Interval History pt c/o mild headache still, she did sleep overnight. denies n/v/f/c +FM no LOF /VB/CTX Antepartum ROS: Reports: New complaints, movement normal Objective Vital Signs Vital Signs Date Time Temp Pulse Resp B/P (MAP) Pulse Ox O2 Delivery O2 Flow Rate FiO2 10/26/17 22:28 97.8 18 10/26/17 22:26 90 110/60 (77) 10/26/17 21:50 88 100 10/26/17 21:45 20 10/26/17 21:45 87 100 10/26/17 21:40 100 10/26/17 21:40 94 10/26/17 21:38 92 106/61 (76) 10/26/17 20:31 86 108/65 (79) 10/26/17 20:20 83 110/73 (85) 10/26/17 20:03 85 132/85 (101) 10/26/17 16:13 98.3 97 16 128/79 (95) 99 Lab & Micro Results Test 10/26/17 19:53 10/27/17 05:35 White Blood Count 8.7 TH/MM3 Red Blood Count 4.11 MIL/MM3 Hemoglobin 11.3 GM/DL Hematocrit 34.7 % Mean Corpuscular Volume 84.5 FL Mean Corpuscular Hemoglobin 27.5 PG Mean Corpuscular Hemoglobin Concent 32.5 % Red Cell Distribution Width 15.5 % Platelet Count 312 TH/MM3 Mean Platelet Volume 7.9 FL Urine Color YELLOW Urine Turbidity HAZY Urine pH 6.0 Urine Specific [place] 1.009 Urine Protein NEG mg/dL Urine Glucose (UA) 50 mg/dL Urine Ketones NEG mg/dL Urine Occult Blood SMALL Urine Nitrite NEG Urine Bilirubin NEG Urine Urobilinogen 2.0 mg/dL Urine Leukocyte Esterase LARGE Urine RBC 4 /hpf Urine WBC 21 /hpf Urine Squamous Epithelial Cells 3 /hpf Urine Bacteria FEW /hpf Urine Mucus MANY /lpf Microscopic Urinalysis Comment CULTURE INDICATED Blood Urea Nitrogen 6 MG/DL 6 MG/DL Creatinine 1.02 MG/DL 0.82 MG/DL Random Glucose 100 MG/DL 111 MG/DL Total Protein 7.3 GM/DL Albumin 2.6 GM/DL Calcium Level 8.5 MG/DL 8.0 MG/DL Uric Acid 3.5 MG/DL Alkaline Phosphatase 139 U/L Aspartate Amino Transf (AST/SGOT) 14 U/L Alanine Aminotransferase (ALT/SGPT) 15 U/L Total Bilirubin 0.3 MG/DL Sodium Level 138 MEQ/L 141 MEQ/L Potassium Level 3.6 MEQ/L 3.6 MEQ/L Chloride Level 105 MEQ/L 109 MEQ/L Carbon Dioxide Level 20.7 MEQ/L 21.2 MEQ/L Anion Gap 12 MEQ/L 11 MEQ/L Estimat Glomerular Filtration Rate 75 ML/MIN 97 ML/MIN Date/Time Source Procedure Growth Status 10/26/17 19:53 Urine Clean Catch Urine Culture Pending Received Physical Exam GENERAL: Well-nourished, well-developed patient. CARDIOVASCULAR: Regular rate and rhythm without murmurs, gallops, or rubs. RESPIRATORY: Breath sounds equal bilaterally. No accessory muscle use. ABDOMEN/GI: Abdomen soft, non-tender. FHT's: Category: [-] 1 Baseline: [-] Reactive: [-] Variability: [-] Decels: [-] EXTREMITIES: No cyanosis or edema, non-tender, without signs of DVT. Assessment and Plan Problem List: (1) Migraine equivalent syndrome ICD Codes: G43.109 - Migraine with aura, not intractable, without status migrainosus Plan: sx improved slightly will d/c home with fioricet f/u with OB and neuro on Sunday bedrest until then (2) Dizziness ICD Codes: R42 - Dizziness and giddiness Status: Acute Plan: stable (3) Seizure disorder during in third trimester ICD Codes: O99.353 - Diseases of the nervous system complicating , third trimester; G40.909 - Epilepsy, unspecified, not intractable, without status epilepticus Status: Acute Plan: stable cont keppra (4) Diabetes in undelivered ICD Codes: O24.919 - Unspecified diabetes mellitus in , unspecified trimester Status: Acute Plan: blood sugars stable without meds (5) ICD Codes: Z34.90 - Encounter for supervision of normal , unspecified , unspecified trimester Status: Acute (6) Morbid obesity ICD Codes: E66.01 - Morbid (severe) obesity due to excess calories Status: Acute Mariam Streeter MD Oct 27, 2017 08:33
[2017-10-27 08:48] VITALS: RESP 19; TEMP 98.6
[2017-10-27 08:49] VITALS: BP 94/56; PULSE 78
[2017-10-27] MEDS ORDERED: [UNRECOGNIZED DRUG - OTHER] PO SCH (09:00)
[2017-10-27] MEDS ORDERED: SODIUM CHLORIDE 0.9% FLUSH 10 ML FLUSH IV FLUSH SCH (09:00)
[2017-10-27] MEDS ORDERED: ZOFR4TAB3 SL (10:03)
[2017-10-27] MEDS ORDERED: ONDANSETRON ODT 4 MG TAB PO ONE (10:15)
[2017-10-27 12:07] VITALS: RESP 18; TEMP 98.3
[2017-10-27 12:08] VITALS: BP 96/59; PULSE 86
== END 2017-10-27 13:43 | disposition home or self-care (01) ==
LOC: HOBED 15:48 → H2EA 22:21 → INTOOBSV 22:21
PROVIDERS: ADMIT Obstetrics & Gynecology; ATTEND Obstetrics & Gynecology
DX: O99.353 Diseases of the nervous system complicating pregnancy, third trimester (principal); G40.909 Epilepsy, unspecified, not intractable, without status epilepticus; G43.109 Migraine with aura, not intractable, without status migrainosus; R42 Dizziness and giddiness; J45.909 Unspecified asthma, uncomplicated; Z3A.34 34 weeks gestation of pregnancy; E11.9 Type 2 diabetes mellitus without complications; R82.99 Other abnormal findings in urine; R20.0 Anesthesia of skin; Z98.84 Bariatric surgery status
CPT/HCPCS: 59025; 80048; 80053; 81001; 82948; 84550; 85027; 86850; 86900; 86901; 87086; 96360; 96361; 96372; 99285; G0378; J2550; J7120